=== PATIENT | female | born 1960 | race Caucasian/White ===

== ENCOUNTER 2021-02-22 07:55 | Inpatient (IN) | payer BC ==
[~2021-02-22] VITALS: Ht 170.2 cm; Wt 48.1 kg
--- NOTE | 2021-02-22 08:20 | NUR ---
THE PATIENT IS BIB FOR FEVER, CHILLS, BODYACHES "POSSIBLE UTI" SINCE SATURDAY. IN ROOM AIR AND DENIES SOB. RESPIRATION REGULAR AND UNLABORED. WILL CONTINUE TO MONITOR THE PATIENT.
[2021-02-22] MEDS ORDERED: CEFEPIME 2 GM in IV D5W 100 ML IV ONE (08:30)
[2021-02-22] MEDS ORDERED: IV NS 0.9% 1,000 ML IV ONE ×2 (08:30→10:00)
--- NOTE | 2021-02-22 08:45 | NUR ---
STARTED IV LINE, BLOOD SPECIMEN COLLECTED AND SENT TO THE LAB. THE LINE IS SALINE LOCKED.
[2021-02-22 08:51] LABS: BASOPHILS % (AUTO) 0.1 % (0.0-2.0); EOSINOPHILS % (AUTO) 1.2 % (0.0-6.0); HEMATOCRIT 34 % (33-45); HEMOGLOBIN 11.1 g/dL (11.5-14.8); LYMPHOCYTES # (AUTO) 0.1 K/uL (0.8-4.8); LYMPHOCYTES % (AUTO) 3.6 % (20.0-44.0); MEAN CORPUSCULAR HGB CONC 33 g/dl (31.0-36.0); MEAN CORPUSCULAR VOLUME 95 fL (82-100); MONOCYTES # (AUTO) 0.5 K/uL (0.1-1.30); MONOCYTES % (AUTO) 13.6 % (2.0-12.0); NEUTROPHILS # (AUTO) 2.9 K/uL (1.8-8.9); NEUTROPHILS % (AUTO) 81.5 % (43.0-81.0); PLATELET COUNT (AUTO) 116 K/uL (150-450); RED BLOOD CELL COUNT(AUTO) 3.53 MIL/uL (4.0-5.2); WHITE BLOOD COUNT (AUTO) 3.5 K/uL (4.3-11.0)
--- NOTE | 2021-02-22 09:08 | NUR ---
COVID SWAB DONE AND SENT TO LAB
--- NOTE | 2021-02-22 09:08 | NUR ---
URINE COLLECTED AND SENT TO LAB
[2021-02-22 09:11] LABS: BILIRUBIN,URINE Negative (NEGATIVE); COLOR,URINE YELLOW (YELLOW); LEUKOCYTE ESTERASE ,URINE Large (NEGATIVE); NITRITE, URINE Positive (NEGATIVE); PROTEIN,URINE 30 mg/dl (NEGATIVE); UGLUCOSE Negative (NEGATIVE); UROBILINOGEN,URINE 0.2 EU/dL (0.2)
[2021-02-22 09:15] LABS: BACTERIA,URINE 1+ /HPF (None Seen); SQUAMOUS EPITHELIAL CELL,UR Moderate /HPF (None Seen)
--- NOTE | 2021-02-22 09:21 | NUR ---
X-RAY TECH AT THE BEDSIDE
[2021-02-22 09:22] LABS: CARBON DIOXIDE 31 mmol/L (21-32); CHLORIDE 100 mmol/L (98-107); SODIUM SERUM 137 mmol/L (136-145)
[2021-02-22 09:24] LABS: CALCIUM, SERUM 8.3 mg/dL (8.5-10.1); CREATININE 1.2 mg/dL (0.6-1.3); GLUCOSE 187 mg/dL (74-106); UREA NITROGEN, BLOOD 11 mg/dL (7-18)
[2021-02-22] MEDS ORDERED: CITA20TA16 PO (09:30)
[2021-02-22] MEDS ORDERED: PREG-59 PO (09:30)
[2021-02-22] MEDS ORDERED: TRAM50TA2 PO (09:30)
[2021-02-22] MEDS ORDERED: QUET100T PO (09:30)
[2021-02-22] MEDS ORDERED: TRAZ-257 PO (09:30)
[2021-02-22] MEDS ORDERED: BUPR75TA8 PO (09:30)
[2021-02-22] MEDS ORDERED: FING0.5C3 PO (09:30)
[2021-02-22] MEDS ORDERED: CLON1TAB12 PO (09:30)
[2021-02-22] MEDS ORDERED: PRIM50TA27 PO (09:30)
[2021-02-22 09:34] LABS: ALANINE AMINOTRANSFERASE 26 U/L (12-78); ALBUMIN 2.9 g/dL (3.4-5.0); ALKALINE PHOSPHATASE 55 U/L (46-116); ASPARTATE AMINOTRANSFERASE 37 U/L (15-37); BILIRUBIN,DIRECT 0.1 mg/dL (0.0-0.2); BILIRUBIN,TOTAL 0.4 mg/dL (0.2-1.0); TOTAL PROTEIN, SERUM 6.2 g/dL (6.4-8.2)
--- NOTE | 2021-02-22 11:01 | NUR ---
CALLED DR. LOUISE REYES.
--- NOTE | 2021-02-22 11:49 | NUR ---
GOT BED 320-2
--- NOTE | 2021-02-22 11:55 | NUR ---
REPORT GIVEN TO NURSE SANDERS
[2021-02-22] MEDS ORDERED: ACETAMINOPHEN 325 MG TABLET ONE (11:57)
[2021-02-22] MEDS ORDERED: clonazePAM 1 MG TABLET ONE (11:57)
[2021-02-22] MEDS ORDERED: ACETAMINOPHEN 325 MG TABLET PO ONE (12:00)
[2021-02-22] MEDS ORDERED: clonazePAM 1 MG TABLET PO ONE (12:00)
--- NOTE | 2021-02-22 12:08 | NUR ---
Patient arrived via gurney at 12:08Pm, from er. Patient AO X 4, able to make needs known, can follow simple commands, no apparent distress noted, breathing even and unlabored. Admitting hospitalist made aware of the patient's arrival. Patient admitting diagnosis UTI. Patient's vital signs within normal limits, no complained of facial numbness or weakness, no extremity numbness or weakness at this time. Skin intact, warm to touch, no pallor or cyanosis noted. Patient oriented with use of call lights, use of bed control, use of telephone and tv control, also introduces [employer] and RN assigned for today, verbalized understanding and gratitude. All belongings written in the inventory list. All needs attended, kept clean and dry, call light left within reach, safety precautions in place, brakes locked, side rails up X 2, will endorse to next shift for continuity of care.
[2021-02-22 12:45] VITALS: BP 105/55
--- NOTE | 2021-02-22 12:45 | NUR ---
Received a call from laboratory spoke to Angelic, regarding patients lactic acid level which resulted to 3.3 Patient seen comfortably lying in bed, no apparent distress noted, afebrile, no chills, MD made aware of the levels and acknowledged, will monitor closely for any changes.
[2021-02-22] MEDS ORDERED: Z GUARD REMEDY 2 OZ OINT TP PRN (13:00)
[2021-02-22] MEDS ORDERED: ONDANSETRON HCL/PF 4 MG/2 ML VIAL IVP PRN (13:00)
[2021-02-22] MEDS ORDERED: MAGNESIUM HYDROXIDE 30 ML UDC PO PRN (13:00)
[2021-02-22] MEDS ORDERED: MAG HYDROX/AL HYDROX/SIMETH 30 ML UDC PO PRN (13:00)
[2021-02-22] MEDS ORDERED: ZOLPIDEM TARTRATE 5 MG TABLET PO PRN (13:00)
[2021-02-22] MEDS: CEFTRIAXONE 1 G in IV D5W 50 ML IV SCH (15:41)
[2021-02-22 16:00] VITALS: BP 97/51
[2021-02-22] MEDS: ACETAMINOPHEN 325 MG TABLET PO PRN (16:45)
--- NOTE | 2021-02-22 19:20 | NUR ---
RN CLOSING NOTES PATIENT REMAINS ON ALERT ORIENTED X3, VERBALLY RESPONSIVE ON ROOM AIR, NO SOB, NO ACUTE DISTRESS NOTED, ALL DUE MEDS GIVEN MD ORDERED, SAFETY PRECAUTIONS MET, BED IN LOWEST POSITION, BED LOCK ON, SIDE RAIL X2, ALL NEEDS MET, ENDORSE NEXT COMING SHIFT FOR CONTINUATION OF CARE.
[2021-02-22 20:00] VITALS: BP 105/58
--- NOTE | 2021-02-22 20:00 | NUR ---
MS RN OPENING NOTES PATIENT AWAKE IN ROOM, ALERT/ORIENTED X 4, PT ABLE TO MAKE NEEDS KNOWN. PT STABLE ON RA, NO S/S OF DISTRESS OR SOB NOTED, BREATHING EVEN AND UNLABORED. PT DENIES PAIN OR DISCOMFORT AT THIS TIME, STATES SHE HAS NO NEEDS AT THIS TIME. IV ACCESS ON RIGHT AC #20G INTACT AND FLUSHING WELL, SALINE LOCKED. PATIENT AMBULATORY AND USES BSC. SAFETY MEASURES IN PLACE: CALL LIGHT WITHIN REACH, SIDE RAILS UP X 2, BED LOCKED IN LOW POSITION. WILL CONTINUE TO MONITOR PATIENT
[2021-02-22] MEDS: QUETIAPINE FUMARATE 100 MG TABLET PO SCH (21:36)
[2021-02-22] MEDS: TRAZODONE 50 MG TABLET PO SCH (21:37)
[2021-02-23] MEDS ORDERED: IV NS 0.9% 1,000 ML IV SCH
--- NOTE | 2021-02-23 06:36 | NUR ---
MS RN CLOSING NOTES PATIENT SLEEPING IN BED. PT STABLE ON RA, NO S/S OF DISTRESS OR SOB NOTED, BREATHING EVEN AND UNLABORED. NO SIGNIFICANT CHANGES THROUGHOUT SHIFT. IV ACCESS ON RIGHT AC #20G INTACT AND RUNNING NS @ 75 ML/HR. MEDICATION GIVEN ORDERED, PT NEEDS MET THROUGHOUT SHIFT. PER PATIENT, FAMILY WILL BRING HOME MEDICATION GILENYA TODAY. SAFETY MEASURES IN PLACE: CALL LIGHT WITHIN REACH, SIDE RAILS UP X 2, BED LOCKED IN LOW POSITION. WILL ENDORSE TO DAY SHIFT NURSE FOR CONTINUITY OF CARE
[2021-02-23] MEDS: ACETAMINOPHEN 325 MG TABLET PO PRN (06:41)
--- NOTE | 2021-02-23 06:51 | NUR ---
MS RN NOTE PATIENT HAS TEMP OF 101.8. TYLENOL 650 MG GIVEN ORDERED. WILL ENDORSE TO DAY SHIFT NURSE
[2021-02-23 07:34] LABS: CALCIUM, SERUM 8.2 mg/dL (8.5-10.1); CREATININE 1.1 mg/dL (0.6-1.3); MAGNESIUM 2.2 mg/dL (1.8-2.4); PHOSPHORUS 2.4 mg/dL (2.5-4.9); POTASSIUM 4.1 mmol/L (3.5-5.1)
[2021-02-23 07:40] LABS: BASOPHILS % (AUTO) 0.3 % (0.0-2.0); HEMATOCRIT 33 % (33-45); HEMOGLOBIN 10.9 g/dL (11.5-14.8); LYMPHOCYTES # (AUTO) 0.3 K/uL (0.8-4.8); LYMPHOCYTES % (AUTO) 7.2 % (20.0-44.0); MEAN CORPUSCULAR HGB CONC 33 g/dl (31.0-36.0); MEAN CORPUSCULAR VOLUME 96 fL (82-100); MONOCYTES # (AUTO) 0.9 K/uL (0.1-1.30); MONOCYTES % (AUTO) 19.6 % (2.0-12.0); NEUTROPHILS # (AUTO) 3.3 K/uL (1.8-8.9); NEUTROPHILS % (AUTO) 71.9 % (43.0-81.0); PLATELET COUNT (AUTO) 129 K/uL (150-450); RED BLOOD CELL COUNT(AUTO) 3.43 MIL/uL (4.0-5.2); WHITE BLOOD COUNT (AUTO) 4.6 K/uL (4.3-11.0)
--- NOTE | 2021-02-23 07:45 | NUR ---
RN OPENING NOTES Patient seen comfortably lying in bed, no SOB, no apparent distress noted, breathing even and unlabored, denies any pain or discomfort at this time. Call light left within reach, safety precautions in place, brakes locked, side rails up X 2, will monitor closely for any changes.
[2021-02-23 08:00] VITALS: BP 113/64
[2021-02-23] MEDS: buPROPion 75 MG TABLET PO SCH (08:25)
[2021-02-23] MEDS: TRAMADOL HCL 50 MG TABLET PO SCH ×2 (08:26→17:12)
[2021-02-23] MEDS: CITALOPRAM HYDROBROMIDE 20 MG TABLET PO SCH (08:26)
[2021-02-23] MEDS: clonazePAM 1 MG TABLET PO SCH ×2 (08:26→17:11)
[2021-02-23] MEDS: PREGABALIN 100 MG CAPSULE PO SCH ×2 (08:59→17:11)
[2021-02-23] MEDS ORDERED: IV NS 0.9% 1,000 ML IV PRN (10:31)
[2021-02-23] MEDS ORDERED: K PHOS NEUTRAL 250 MG TABLET PO ONE (12:00)
[2021-02-23] MEDS: CEFTRIAXONE 1 G in IV D5W 50 ML IV SCH (15:52)
[2021-02-23 16:00] VITALS: BP 120/72
[2021-02-23] MEDS ORDERED: PRIMIDONE 50 MG TABLET PO SCH (18:00)
--- NOTE | 2021-02-23 18:19 | NUR ---
RN CLOSING NOTES Patient lying in bed, AO X 4, no apparent distress noted, no SOB, respirations even and unlabored, no dizziness, no palpitations, denies any pain or discomfort. All medications given per MD order, tolerating well. No pain or discomfort noted with urination, no hematuria, no unusual odor noted in urine, no bladder distention noted, bladder scan revealed 215ml, per patient she will urinate in a bit, no grimacing when bladder area palpated. Kept clean and dry, all needs attended, call light left within reach, safety precautions in place, brakes locked, side rails up X 2, will endorse to next shift for continuity of care.
--- NOTE | 2021-02-23 19:25 | NUR ---
MS RN OPENING NOTES: RECEIVED PATIENT IN BED, AWAKE. A/O X4. NO S/S OF DISTRESS NOTED. NO COMPLAIN OF PAIN. CALL LIGHT WITHIN REACH. BED IN LOWEST AND LOCKED POSITION. FAMILY MEMBERS AT THE BEDSIDE. IVF RESUMED.
[2021-02-23 20:00] VITALS: BP 136/82
[2021-02-23] MEDS: QUETIAPINE FUMARATE 100 MG TABLET PO SCH (22:10)
[2021-02-23] MEDS: TRAZODONE 50 MG TABLET PO SCH (22:10)
--- NOTE | 2021-02-24 00:37 | NUR ---
PATIENT IS ASLEEP AT THIS TIME. WILL DO THE BLADDER SCAN LATER.
--- NOTE | 2021-02-24 01:35 | NUR ---
TALKED TO DR ANDREY GODWIN: TRAZADONE, PATIENT WANTS TO INCREASE IT FROM 200MG TO 250MG, NO ORDERS MADE.
--- NOTE | 2021-02-24 05:40 | NUR ---
BLADDER SCANNED, >313ML, INFORMED PATIENT RE: WILL DO THE STRAIGHT CATHETERIZATION FOR URINE RETENTION, PATIENT WISHES TO BE ALONE AT THIS TIME, ADVISED PATIENT TO CALL WHEN SHE'S READY, PATIENT VERBALIZED UNDERSTANDING.
--- NOTE | 2021-02-24 06:20 | NUR ---
STRAIGHT CATH DONE, PATIENT TOLERATED. DRAINED 310 ML URINE CLEAR YELLOW.
[2021-02-24 08:00] VITALS: BP 103/64
[2021-02-24] MEDS: BETHANECHOL CHLORIDE (10 MG) 10 MG TABLET PO SCH ×2 (08:22→12:41)
[2021-02-24] MEDS: PREGABALIN 100 MG CAPSULE PO SCH (08:22)
[2021-02-24] MEDS: TRAMADOL HCL 50 MG TABLET PO SCH (08:23)
[2021-02-24] MEDS: clonazePAM 1 MG TABLET PO SCH (08:23)
[2021-02-24] MEDS: buPROPion 75 MG TABLET PO SCH (08:23)
[2021-02-24] MEDS: CITALOPRAM HYDROBROMIDE 20 MG TABLET PO SCH (08:23)
[2021-02-24] MEDS ORDERED: GILENYA 0.5 MG PO SCH (09:00)
[2021-02-24] MEDS ORDERED: CIPR-263 PO (12:26)
[2021-02-24] MEDS ORDERED: CIPROFLOXACIN HCL 250 MG TABLET PO SCH (12:30)
--- NOTE | 2021-02-24 14:05 | NUR ---
Patient to be discharged home today, no apparent distress noted, no shortness of breath, respirations even and unlabored, pain medication given per MD order when non pharmacological measures ineffective. Patient made aware of the situation, she signed all discharge paper works, all belongings taken, inventory list signed by patient. Health teaching provided, verbalized understanding and gratitude. 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 Skin assessment done prior to discharge, skin intact, warm to touch, no pallor or cyanosis noted. Peripheral IV line on the right antecubital removed prior to discharge, complete and intact, no excessive bleeding noted, site covered with dry dressing. Name wristband removed prior to discharge, surgical mask provided for patient to use. RN assisted patient going to the hospital parking lot via wheelchair, left unit at 1405 pm , stable condition, exit care documents handed to patient.
== END 2021-02-24 14:05 | disposition home or self-care (01) | DRG 872 ==
LOC: ER 08:02 → MED 11:59
PROVIDERS: ADMIT Internal Medicine; ATTEND Internal Medicine
DX: A41.51 Sepsis due to Escherichia coli [E. coli] (principal); N39.0 Urinary tract infection, site not specified; E87.2 Acidosis; N10 Acute pyelonephritis; Z87.440 Personal history of urinary (tract) infections; G35 Multiple sclerosis; Z20.822 Contact with and (suspected) exposure to COVID-19; Z88.0 Allergy status to penicillin; Z88.2 Allergy status to sulfonamides; Z79.899 Other long term (current) drug therapy; N31.9 Neuromuscular dysfunction of bladder, unspecified; Z98.890 Other specified postprocedural states; F41.9 Anxiety disorder, unspecified; G62.9 Polyneuropathy, unspecified; G89.4 Chronic pain syndrome; G47.00 Insomnia, unspecified; D72.819 Decreased white blood cell count, unspecified; F32.A Depression, unspecified; M79.7 Fibromyalgia; B96.20 Unspecified Escherichia coli [E. coli] as the cause of diseases classified elsewhere; R33.9 Retention of urine, unspecified
CPT/HCPCS: 36415; 71045-TC; 80048-TC; 80061-TC; 80076-TC; 81001; 83605-TC; 83735-TC; 84100-TC; 84484-TC; 85025-TC; 85730-TC; 87040-TC; 87081-TC; 87086-TC; 87186-TC; C9803; G0378; J0692; J0696; J7030; J7050; J7060

== ENCOUNTER 2021-10-14 07:46 | Emergency (ER) | payer BC ==
[~2021-10-14] VITALS: Ht 170.2 cm; Wt 49.0 kg
[~2021-10-14 07:46] MED LIST: BUPR75TA8 PO; CIPR-263 PO; CITA20TA16 PO; CLON1TAB12 PO; FING0.5C3 PO; PREG-59 PO; PRIM50TA27 PO; QUET100T PO; TRAM50TA2 PO; TRAZ-257 PO
[2021-10-14] MEDS ORDERED: LEVOFLOXACIN 750 MG /D5W 150ML 150 ML IV ONE ×2 (08:00→08:22)
[2021-10-14] MEDS ORDERED: IV NS 0.9% 1,000 ML BAG IV ONE (08:00)
[2021-10-14 08:43] LABS: BASOPHILS % (AUTO) 0.3 % (0.0-2.0); EOSINOPHILS % (AUTO) 0.1 % (0.0-6.0); HEMATOCRIT 36 % (33-45); HEMOGLOBIN 11.9 g/dL (11.5-14.8); LYMPHOCYTES # (AUTO) 0.2 K/uL (0.8-4.8); LYMPHOCYTES % (AUTO) 3.1 % (20.0-44.0); MEAN CORPUSCULAR HGB CONC 33 g/dl (31.0-36.0); MEAN CORPUSCULAR VOLUME 94 fL (82-100); MONOCYTES # (AUTO) 0.8 K/uL (0.1-1.30); MONOCYTES % (AUTO) 12.6 % (2.0-12.0); NEUTROPHILS # (AUTO) 5.3 K/uL (1.8-8.9); NEUTROPHILS % (AUTO) 83.9 % (43.0-81.0); PLATELET COUNT (AUTO) 130 K/uL (150-450); WHITE BLOOD COUNT (AUTO) 6.3 K/uL (4.3-11.0)
--- NOTE | 2021-10-14 08:46 | NUR ---
COVID AND INFLUENZA SWAB OBTAINED AND SENT TO LAB
[2021-10-14] MEDS ORDERED: ACETAMINOPHEN ES 500 MG TABLET ONE (08:54)
[2021-10-14] MEDS ORDERED: ACETAMINOPHEN ES 500 MG TABLET PO ONE (09:00)
[2021-10-14 09:06] LABS: CALCIUM, SERUM 8.5 mg/dL (8.5-10.1); CARBON DIOXIDE 29 mmol/L (21-32); CHLORIDE 104 mmol/L (98-107); CREATININE 1.4 mg/dL (0.6-1.3); GLUCOSE 183 mg/dL (74-106); POTASSIUM 3.7 mmol/L (3.5-5.1); SODIUM SERUM 139 mmol/L (136-145); UREA NITROGEN, BLOOD 16 mg/dL (7-18)
[2021-10-14 09:11] LABS: ALANINE AMINOTRANSFERASE 29 U/L (12-78); ALBUMIN 3.4 g/dL (3.4-5.0); ALKALINE PHOSPHATASE 67 U/L (46-116); ASPARTATE AMINOTRANSFERASE 27 U/L (15-37); BILIRUBIN,DIRECT 0.2 mg/dL (0.0-0.2); BILIRUBIN,TOTAL 0.7 mg/dL (0.2-1.0); TOTAL PROTEIN, SERUM 6.6 g/dL (6.4-8.2)
[2021-10-14 09:42] LABS: BILIRUBIN,URINE NEGATIVE (NEGATIVE); COLOR,URINE YELLOW (YELLOW); LEUKOCYTE ESTERASE ,URINE MODERATE (NEGATIVE); NITRITE, URINE POSITIVE (NEGATIVE); PH,URINE 5.5 (5.0-8.0); PROTEIN,URINE 30 mg/dl (NEGATIVE); UGLUCOSE NEGATIVE (NEGATIVE); UROBILINOGEN,URINE 0.2 EU/dL (0.2)
--- NOTE | 2021-10-14 10:08 | NUR ---
DR. OLY REYES.
--- NOTE | 2021-10-14 10:09 | NUR ---
DR. ALDRIDGE ON THE PHONE WITH DR. MONTALVO.
[2021-10-14 10:23] LABS: BACTERIA,URINE 2+ /HPF (None Seen); RBC,URINE 0-2 /HPF (0-2); WBC,URINE TOO NUMEROUS TO COUN /HPF (0-3)
--- NOTE | 2021-10-14 14:21 | NUR ---
PROVIDED SANDWICH AND JUICE TO PT; TAKEN WELL.
--- NOTE | 2021-10-14 15:56 | NUR ---
SPOKE TO DR ARIAS, HE WILL DISCHARGE THE PATIENT
[2021-10-14] MEDS ORDERED: MAGNESIUM HYDROXIDE 30 ML UDC PO PRN (16:00)
[2021-10-14] MEDS ORDERED: Z GUARD REMEDY 4 OZ OINT TP PRN (16:00)
[2021-10-14] MEDS ORDERED: ACETAMINOPHEN 325 MG TABLET PO PRN (16:00)
--- NOTE | 2021-10-14 16:12 | NUR ---
SPOKE W/ DR ARIAS. PER , 2ND TROPONIN NEEDS TO BE DONE BEFORE PT WILL BE DISCHARGED. PHLEB IN THE ER AND MADE AWARE FOR BLOOD DRAW.
--- NOTE | 2021-10-14 16:30 | NUR ---
DR BRODERICK AT BEDSIDE TALKING TO THE PATIENT
--- NOTE | 2021-10-14 19:00 | NUR ---
SPOKE TO DR ARIAS, HE'S WORKING ON DISCHARGING THE PATIENT
[2021-10-14] MEDS ORDERED: LORAZEPAM INJ 2 MG/ML VIAL ONE (19:13)
[2021-10-14] MEDS ORDERED: LORAZEPAM INJ 2 MG/ML VIAL IV PRN (19:30)
--- NOTE | 2021-10-14 20:21 | NUR ---
RECEIVED PATIENT AWAKE. UPSET AND WANTING TO BE DISCHARGE. VITALS CHECKED. INFORMED PATIENT THAT I AM STILL WAITING FOR DISCHARGE INSTRUCTIONS FROM ADMITTING MD. WILL CONTINUE TO FF UP.
--- NOTE | 2021-10-14 20:25 | NUR ---
FF UP WITH DR ARIAS ABOUT THE PATIENT'S DISCHARGE INSTRUCTIONS. HE REPLIED TO DISCHARGE PATIENT AND SEND PATIENT TO PREFERRED PHARMACY TO [facility].
--- NOTE | 2021-10-14 20:30 | NUR ---
Patient discharged to home in stable condition. Written and verbal after care instructions given. Patient verbalizes understanding of instruction.
--- NOTE | 2021-10-14 20:30 | NUR ---
IV CANNULA REMOVED.
[2021-10-14 21:02] VITALS: BP 117/66
[2021-10-14] MEDS ORDERED: HYDROMORPHONE 1 MG/1 ML DISP.SYRIN IV PRN (21:30)
[2021-10-14] MEDS ORDERED: ZOLPIDEM TARTRATE 5 MG TABLET PO PRN (22:00)
== END 2021-10-14 21:02 | disposition home or self-care (01) ==
LOC: ER 07:52 → UNDOADMIN 12:00 → TRANSITION 12:00 → UNDODISIN 20:30 → ER 21:02
DX: N39.0 Urinary tract infection, site not specified (principal); R77.8 Other specified abnormalities of plasma proteins; N28.9 Disorder of kidney and ureter, unspecified; E72.51 Non-ketotic hyperglycinemia; Z20.822 Contact with and (suspected) exposure to COVID-19; G35 Multiple sclerosis; Z87.440 Personal history of urinary (tract) infections; Z88.0 Allergy status to penicillin; Z88.2 Allergy status to sulfonamides; Z79.899 Other long term (current) drug therapy; R94.31 Abnormal electrocardiogram [ECG] [EKG]
CPT/HCPCS: 99285; 96365; 71045; 96375; 87426; 93005; 87804; 84145; 85025; 80048; 87077; 87086; 83605; 80076; 87186; 81001; 36415; 84484 ×2; 85730; 87040 ×2; 87081; U0003; J2060; J1956; C9803; G0378

== ENCOUNTER 2024-05-27 22:52 | Emergency (ER) | payer BC ==
[~2024-05-27] VITALS: Ht 170.2 cm; Wt 47.6 kg
[~2024-05-27 22:52] MED LIST changes: -BUPR75TA8 PO; -CIPR-263 PO
[2024-05-28 00:13] LABS: BASOPHILS % (AUTO) 0.2 % (0.0-2.0); EOSINOPHILS # (AUTO) 0.1 K/uL (0.0-0.7); EOSINOPHILS % (AUTO) 1.2 % (0.0-6.0); HEMATOCRIT 38 % (33-45); HEMOGLOBIN 12.6 g/dL (11.5-14.8); LYMPHOCYTES # (AUTO) 0.1 K/uL (0.8-4.8); LYMPHOCYTES % (AUTO) 2.1 % (20.0-44.0); MEAN CORPUSCULAR HEMOGLOBIN 32 PG (26.0-33.0); MEAN CORPUSCULAR HGB CONC 33 g/dl (31.0-36.0); MEAN CORPUSCULAR VOLUME 95 fL (82-100); MONOCYTES # (AUTO) 0.8 K/uL (0.1-1.30); MONOCYTES % (AUTO) 12.9 % (2.0-12.0); NEUTROPHILS # (AUTO) 5.5 K/uL (1.8-8.9); NEUTROPHILS % (AUTO) 83.6 % (43.0-81.0); PLATELET COUNT (AUTO) 188 K/uL (150-450); RED BLOOD CELL COUNT(AUTO) 3.99 MIL/uL (4.0-5.2); RED CELL DISTRIBUTION WIDTH 13.9 % (11.5-15.0); WHITE BLOOD COUNT (AUTO) 6.5 K/uL (4.3-11.0)
[2024-05-28 00:27] LABS: CALCIUM, SERUM 8.8 mg/dL (8.5-10.1); POTASSIUM 4.4 mmol/L (3.5-5.1)
[2024-05-28 00:28] VITALS: BP 141/77; TEMP 99.4; O2SAT 99
[2024-05-28 00:29] LABS: LACTIC ACID 1.6 mmol/L (0.4-2.0)
[2024-05-28 00:34] LABS: ALBUMIN 3.4 g/dL (3.4-5.0); BILIRUBIN,DIRECT 0.2 mg/dL (0.0-0.2); BILIRUBIN,TOTAL 0.5 mg/dL (0.2-1.0); TOTAL PROTEIN, SERUM 6.8 g/dL (6.4-8.2)
[2024-05-28 00:48] LABS: APPEARANCE,URINE CLEAR (CLEAR); BILIRUBIN,URINE NEGATIVE (NEGATIVE); BLOOD, URINE TRACE Ery/uL (NEGATIVE); COLOR,URINE YELLOW (YELLOW); KETONES,URINE NEGATIVE (NEGATIVE); LEUKOCYTE ESTERASE ,URINE TRACE (NEGATIVE); NITRITE, URINE POSITIVE (NEGATIVE); PROTEIN,URINE NEGATIVE (NEGATIVE); UGLUCOSE NEGATIVE (NEGATIVE)
[2024-05-28 00:52] LABS: ADD URINE CULTURE YES; SQUAMOUS EPITHELIAL CELL,UR Rare /HPF (None Seen)
[2024-05-28 00:53] LABS: BACTERIA,URINE Moderate /HPF (None Seen)
== END 2024-05-28 01:51 | disposition home or self-care (01) ==
LOC: ER 22:54
DX: N39.0 Urinary tract infection, site not specified (principal); G35 Multiple sclerosis; R07.9 Chest pain, unspecified; Z79.899 Other long term (current) drug therapy; Z87.440 Personal history of urinary (tract) infections; Z88.0 Allergy status to penicillin; Z88.2 Allergy status to sulfonamides
CPT/HCPCS: 36415; 71045-TC; 80048-TC; 80076-TC; 81001; 83605-TC; 85025-TC; 87040-TC; 87086-TC